=== PATIENT | female | born 2000 | race Two or more races ===

== ENCOUNTER 2024-12-24 01:56 | Emergency (ER) | payer BC, OTHER ==
[~2024-12-24] VITALS: Ht 162.6 cm; Wt 62.5 kg
[2024-12-24 01:58] VITALS: BP 103/61; PULSE 98; RESP 16; TEMP 97.5; O2SAT 97
== END 2024-12-24 02:42 | disposition left against medical advice (07) ==
LOC: ER 01:56
DX: R10.13 Epigastric pain (principal); Z53.21 Procedure and treatment not carried out due to patient leaving prior to being seen by health care provider

== ENCOUNTER 2025-03-06 21:23 | Emergency (ER) | payer BC, OTHER ==
[~2025-03-06] VITALS: Ht 165.1 cm; Wt 55.0 kg
--- NOTE | 2025-03-06 22:00 | ED.PDOC ---
History of Present Illness HPI Comments 24-year-old female who came to ER for chest pains. Patient does have history of asthma. States she was watching TV earlier when she started having shortness of breath, associated with chest tightness, 6/10 intensity. Patient took inhalers but offered no relief. REVIEW OF SYSTEMS: General: No fever, no chills, or fatigue HEENT: No sore throat, no earache, no congestion, no neck pain. Cardiac: (+) chest pain. No palpitations. Lungs: (+) shortness of breath, no cough. GI: No nausea, no vomiting, no diarrhea, no constipation, no abdominal pain : No dysuria, frequency, or urgency. No hematuria. Musculoskeletal: No joint pain , no joint swelling, no extremity edema. Skin: No rash, no itching. Neuro: No headache, no dizziness, no weakness EXAM: General: Awake, alert and oriented. No acute distress. Skin: Skin in warm, dry and intact. Appropriate color for ethnicity. HEENT: The head is normocephalic and atraumatic. Conjunctivae are clear without exudates or hemorrhage. Sclera is non-icteric. EOM are intact. No signs of nystagmus. Eyelids are normal in appearance without swelling or lesions. Oral mucosa is pink and moist Neck: The neck is supple with normal range of motion. No JVD. Cardiac: Heart rate and rhythm are normal. No murmurs, gallops, or rubs are auscultated. Respiratory: No signs of respiratory distress. Lung sounds are clear in all lobes bilaterally without rales, rhonchi, or wheezes. Abdominal: Abdomen is soft, non-tender without distention. Bowel sounds are present and normoactive in all four quadrants. Extremities: Upper and lower extremities are atraumatic in appearance without deformity or edema. Neurological: The patient is awake, alert and oriented to person, place, and time with normal speech. Speech is clear. There is no facial asymmetry. Psychiatric: Appropriate mood and affect. Good judgement and insight Chief Complaint: Chest Pain Time Seen by MD: 21:25 Reviewed Notes: Nurses Notes Allergies: Coded Allergies: NO KNOWN ALLERGIES (Unverified , 12/24/24) Information Source: Patient Mode of Arrival: Ambulatory Past Medical History PAST MEDICAL HISTORY: Asthma, DM Surgical History: Appendectomy, [employer]GRAM[employer] History: Denies all [employer] Hx Family History Family History: Family hx of Cancer, Family hx of heart demetrius Social History Smoker: Cigarettes Alcohol: Denies ETOH Use Drugs: Denies Drug Use Lives In: Home Was a procedure done? Was a procedure done?: No EKG EKG : Pulse Rate (adult): 115 Cardiac Rhythm: ST Differential Dx Considerations may include: Asthma, anemia, anxiety, shortness of breath, chest pain X-Ray, Labs, Meds, VS Vital Signs Date Time Temp Pulse Resp B/P (MAP) Pulse Ox O2 Delivery O2 Flow Rate FiO2 03/06/25 22:38 91 03/06/25 22:38 91 03/06/25 22:28 98.2 118 18 110/67 (81) 97 98.2 03/06/25 22:28 118 18 97 Room Air 03/06/25 22:03 18 97 Room Air* 0 21 03/06/25 22:00 115 03/06/25 21:29 115 03/06/25 21:25 98.1 124 18 100/44 97 98.1 Lab Test 03/06/25 22:32 03/06/25 21:35 Range/Units Troponin I High Sensitivity < 3 L < 3 L </=34 ng/L White Blood Count 8.1 4.4-10.8 10^3/uL Red Blood Count 3.97 L 4.0-5.20 10^6/uL Hemoglobin 12.0 L 12.2-16.2 g/dL Hematocrit 36.3 36.0-46.0 % Mean Corpuscular Volume 91.5 80.0-100.0 fL Mean Corpuscular Hemoglobin 30.3 28.0-32.0 pg Mean Corpuscular Hemoglobin Concent 33.1 32.0-36.0 g/dL Red Cell Distribution Width 13.1 11.8-14.3 % Platelet Count 370 140-450 10^3/uL Mean Platelet Volume 7.0 6.9-10.8 fL Neutrophils (%) (Auto) 56.1 37.0-80.0 % Lymphocytes (%) (Auto) 29.0 10.0-50.0 % Monocytes (%) (Auto) 12.4 H 0.0-12.0 % Eosinophils (%) (Auto) 2.0 0.0-7.0 % Basophils (%) (Auto) 0.5 0.0-2.0 % Neutrophils # (Auto) 4.6 1.6-8.6 10 ^3/uL Lymphocytes # (Auto) 2.4 0.4-5.4 10 ^3/uL Monocytes # (Auto) 1.0 0-1.3 10 ^3/uL Eosinophils # (Auto) 0.2 0-0.8 10 ^3/uL Basophils # (Auto) 0 0-0.2 10 ^3/uL Nucleated Red Blood Cells 0.0 % Sodium Level 142 136-145 mmol/L Potassium Level 3.5 3.5-5.1 mmol/L Chloride Level 106 98-107 mmol/L Carbon Dioxide Level 26 20-31 mmol/L Anion Gap 10 5-15 Blood Urea Nitrogen 9 9-23 mg/dL Creatinine 0.75 0.550-1.02 mg/dL Glomerular Filtration Rate Calc 115 >90 mL/min BUN/Creatinine Ratio 12.0 10.0-20.0 Serum Glucose 148 H 74-106 mg/dL Calcium Level 9.1 8.7-10.4 mg/dL B-Type Natriuretic Peptide 2.71 0-100 pg/mL Current Medications Medications (Trade) Dose Ordered Sig/Andres Route Start Time Stop Time Status Last Admin Hydroxyzine Pamoate (Vistaril Oral) 50 mg ONCE ONCE PO 03/06/25 21:45 03/06/25 21:46 DC 03/06/25 22:26 Albuterol (Ventolin Medneb) 2.5 mg ONCE ONCE NEB 03/06/25 21:45 03/06/25 21:46 DC 03/06/25 22:02 Acetaminophen (Tylenol Tablet Or Capsule) 1,000 mg ONCE ONCE PO 03/06/25 21:45 03/06/25 21:46 DC 03/06/25 22:26 PROCEDURE(s): CXR1 - CHEST XRAY 1 VIEW REASON: Shortness of breath ORDER NUMBER(s): [id number], ACCESSION NUMBER(s): [id number] CLINICAL HISTORY: Shortness of breath. TECHNIQUE: Single frontal view of the chest was obtained. COMPARISON: None FINDINGS: DEVICES/LINES/TUBES: None. LUNGS: Clear. PLEURA: No pneumothorax or pleural effusion. MEDIASTINUM/OTHER: Normal heart size and mediastinal contours. Trachea is midline. BONES: Unremarkable. UPPER ABDOMEN: Unremarkable. IMPRESSION: No acute cardiopulmonary process. Time of 1ST Reevaluation: 21:56 Reevaluation 1ST: Unchanged Patient Education/Counseling: Need For Follow Up Family Education/Counseling: No Family Present SEPSIS Sepsis Screen Date sepsis recognized/suspect: Mar 06, 2025 Time Sepsis recognized/suspect: 2132 Recent Procedure: No On Antibiotic Therapy: No Respiratory Rate >20: No Heart Rate >90: Yes Temp<36 C (96.8 F) or >38.3 C: No SBP <90 or MAP <65 mmHG: No New Acute Mental Status Change: No Is the patient on CPAP, BIPAP,: No Physician Orders Chest Xray 1 View (03/06/25 21:43) Vital Signs Q1HR (03/06/25 21:43) Electrocardigram (03/06/25 22:43) Electrocardigram (03/07/25 00:43) Vital Signs Date Time Temp Pulse Resp B/P (MAP) Pulse Ox O2 Delivery O2 Flow Rate FiO2 03/06/25 22:38 91 03/06/25 22:38 91 03/06/25 22:28 98.2 118 18 110/67 (81) 97 98.2 03/06/25 22:28 118 18 97 Room Air 03/06/25 22:03 18 97 Room Air* 0 21 03/06/25 22:00 115 03/06/25 21:29 115 03/06/25 21:25 98.1 124 18 100/44 97 98.1 Laboratory Tests Test 03/06/25 21:35 White Blood Count 8.1 10^3/uL (4.4-10.8) Medications Medications Dose Ordered Sig/Andres Route Start Time Stop Time Status Last Admin Dose Admin Acetaminophen 1,000 mg ONCE ONCE PO 03/06/25 21:45 03/06/25 21:46 DC 03/06/25 22:26 Albuterol 2.5 mg ONCE ONCE NEB 03/06/25 21:45 03/06/25 21:46 DC 03/06/25 22:02 Hydroxyzine Pamoate 50 mg ONCE ONCE PO 03/06/25 21:45 03/06/25 21:46 DC 03/06/25 22:26 Departure 1 Departure Time of Disposition: 00:28 Impression: Primary Impression: Chest pain Disposition: 01 HOME / SELF CARE / HOMELESS Condition: Stable Additional Instructions: ED DISCHARGE INSTRUCTIONS Instructions: Please read all instructions provided in this packet carefully. Although you have been discharged from the Emergency Department, this does not mean that you have a "clean bill of health". No definitive diagnosis for your symptoms has been made today. It is possible that you are in the process of developing a serious illness. This is why you must return to the ED without fail if any new or worsening symptoms (especially if your symptoms include chest pain, trouble breathing, abdominal pain, fever, headache, confusion, trouble seeing, or trouble walking) It is also very important that you see a primary care provider (PCP) within the next 3-5 days to follow up. If you are unable to get an appointment, return to the ED for re-evaluation. CHEST PAIN EDUCATION There are many things that can cause chest pain. Some are not serious and will get better on their own in a few days. But some kinds of chest pain need more testing and treatment. Your doctor may have recommended a follow-up visit in the next few days. If you are not getting better, you may need more tests or treatment. Even though your doctor has released you, you still need to watch for any problems. The doctor carefully checked you, but sometimes problems can develop later. If you have new symptoms or if your symptoms do not get better, get medical care right away. If you have worse or different chest pain or pressure that lasts more than 5 minutes or you passed out (lost consciousness), call 911 or seek other emergency help right away. A medical visit is only one step in your treatment. Even if you feel better, you still need to do what your doctor recommends, such as going to all suggested follow-up appointments and taking medicines exactly as directed. This will help you recover and help prevent future problems. How can you care for yourself at home? Rest until you feel better. Take your medicine exactly as prescribed. Call your doctor if you think you are having a problem with your medicine. Do not drive after taking a prescription pain medicine. When should you call for help? Call 911 if: You passed out (lost consciousness). You have severe difficulty breathing. You have symptoms of a heart attack. These may include: Chest pain or pressure, or a strange feeling in your chest. Sweating. Shortness of breath. Nausea or vomiting. Pain, pressure, or a strange feeling in your back, neck, jaw, or upper belly or in one or both shoulders or arms. Lightheadedness or sudden weakness. A fast or irregular heartbeat. After you call 911, the rope coiling machine operator may tell you to chew 1 adult-strength or 2 to 4 low-dose aspirin. Wait for an ambulance. Do not try to drive yourself. Call your doctor now or seek immediate medical care if: You have any trouble breathing. You have new or different chest pain. You are dizzy or lightheaded, or you feel like you may faint. Watch closely for changes in your health, and be sure to contact your doctor if you do not get better as expected. Current as of: October 10, 2023 Author: [employer] Staff? Comments 24-year-old female with no risk factors with episode of chest pain. Serial EKG negative for signs of ischemia. Serial High sensitivity troponin negative. CXR shows no acute process. Presentation not suggestive of acute coronary syndrome, pulmonary embolism or aortic dissection. Patient improved at time of discharge. Patient has not been hypoxic, in respiratory distress or dyspneic during the ED observation. Patient able to ambulate without difficulty. Patient felt stable for discharge to follow up with PCP promptly. Patient advised to return to the ED with any new, worsening or concerning symptoms or inability to follow up with PCP. Critical Care Note Critical Care Time?: No Stability Stability form required: No Heart Score Heart Score: Heart Score Response (Comments) Value History N/A 0 EKG N/A 0 Age N/A 0 Risk Factors N/A 0 Troponin N/A 0 Total 0 I personally scribed for CHARLY WOODWARD MD ([email or web address]) on 03/06/25 at 22:00. Electronically submitted by Bryson Perez ([email or web address]). I personally scribed for CHARLY WOODWARD MD ([email or web address]) on 03/06/25 at 22:51. Electronically submitted by Bryson Perez ([email or web address]). CHARLY WOODWARD MD Mar 06, 2025 22:00
[2025-03-06 22:01] LABS: Chloride 106 mmol/L (98-107); Hematocrit 36.3 % (36.0-46.0); Hemoglobin 12.0 g/dL (12.2-16.2); Mean Corpuscular Hemoglobin 30.3 pg (28.0-32.0); Mean Corpuscular Volume 91.5 fL (80.0-100.0); Nucleated Red Blood Cells % 0.0 %; Potassium 3.5 mmol/L (3.5-5.1); Sodium 142 mmol/L (136-145)
[2025-03-06 22:02] LABS: Anion Gap 10 (5-15); Calcium 9.1 mg/dL (8.7-10.4); Carbon Dioxide 26 mmol/L (20-31)
[2025-03-06] MEDS: ALBUTEROL SULF 2.5 MG/0.5ML(0.5%) NEB SOLN NEB ONE (22:02)
[2025-03-06 22:07] LABS: BUN/Creatinine Ratio 12.0 (10.0-20.0); Blood Urea Nitrogen 9 mg/dL (9-23); Glucose 148 mg/dL (74-106)
[2025-03-06] MEDS: hydrOXYzine 25 MG TAB or CAP PO ONE (22:26)
[2025-03-06] MEDS: ACETAMINOPHEN 500 MG TAB or CAP PO ONE (22:26)
[2025-03-06 22:28] VITALS: BP 110/67; RESP 18; TEMP 98.2; O2SAT 97
--- NOTE | 2025-03-06 22:28 | DVH ---
CLINICAL HISTORY: Shortness of breath. TECHNIQUE: Single frontal view of the chest was obtained. COMPARISON: None FINDINGS: DEVICES/LINES/TUBES: None. LUNGS: Clear. PLEURA: No pneumothorax or pleural effusion. MEDIASTINUM/OTHER: Normal heart size and mediastinal contours. Trachea is midline. BONES: Unremarkable. UPPER ABDOMEN: Unremarkable. IMPRESSION: No acute cardiopulmonary process.
[2025-03-06 22:38] VITALS: PULSE 91
--- NOTE | 2025-03-06 22:43 | ECG ---
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
--- NOTE | 2025-03-09 10:07 | ECG ---
[facility] Test Date: 2025-03-06 Test Time: 21:29:02 Pat Name: TIANA CH Department: ED Room: Gender: F Monitoring Specialist: SAWYER : 2000 Requested By: CHARLY WOODWARD Order Number: [id number] Reading MD: Santosh Mcmahon Measurements Intervals [place] Rate: 115 P: 83 [place]: 146 QRS: 92 QRSD: 94 T: 34 QT: 322 QTc: 446 Interpretive Statements Sinus tachycardia Right atrial enlargement Borderline right axis deviation Electronically Signed On 03-12-2025 17:32:33 PST by Santosh Mcmahon Please click the below link to view image of tracing.
== END 2025-03-07 00:56 | disposition home or self-care (01) ==
LOC: ER 21:23
DX: R07.89 Other chest pain (principal); R06.02 Shortness of breath; E11.9 Type 2 diabetes mellitus without complications; F17.210 Nicotine dependence, cigarettes, uncomplicated; J45.909 Unspecified asthma, uncomplicated; Z90.49 Acquired absence of other specified parts of digestive tract
CPT/HCPCS: 36415; 71045; 80048; 83880; 84484; 85025; 93005; 94640